=== PATIENT | female | born 1960 ===

== ENCOUNTER 2020-06-23 06:36 | Outpatient (CLI) | payer BC, OTHER ==
[2020-06-23 12:43] LABS: #Basophils 0.1 10x3/uL (0.0-0.2); #Eosinphils 0.1 10x3/uL (0.0-0.5); #Monocytes 0.6 10x3/uL (0.0-1.1); #Neutrophils 4.1 10x3/uL (1.5-8.4); %Basophils 1.1 % (0.0-2.0); %Eosinophils 1.9 % (0.0-6.0); %Lymphocytes 33.3 % (18.0-47.0); %Monocytes 8.2 % (0.0-10.0); %Neutrophils 55.4 % (40.0-75.0); Hemoglobin 14.5 g/dL (12.0-16.0); Mean Corpuscular HGB CONC 32.9 G/DL (32.0-36.0); Mean Corpuscular Hemoglobin 31.2 PG (27.0-33.0); Mean Corpuscular Volume 94.8 fl (80.0-100.0); Mean Platelet Volume 11.8 fl (7.4-10.4); Platelet Count 219 10x3/uL (130-400); RBC Distribution Width 12.5 % (11.5-14.5); Red Blood Cell (RBC) Count 4.65 10x6/uL (3.90-5.20); White Blood Cell (WBC) Count 7.5 10x3/uL (4.5-11.0)
[2020-06-23 13:12] LABS: Anion Gap 15 mmol/L (10-20); BUN (Urea Nitrogen) 25 mg/dL (9.8-20.1); Calc. Creatinine Clearance 0 mL/min (70-130); Calcium 9.3 mg/dL (7.8-10.44); Carbon Dioxide 25 mmol/L (22-29); Chloride 106 mmol/L (98-107); Estimated GFR-MDRD 63; Glucose 102 mg/dL (70-105); Potassium 4.3 mmol/L (3.5-5.1); Sodium 142 mmol/L (136-145)
[2020-06-24 15:02] LABS: SARS-CoV-2 MS2 Positive; SARS-CoV-2 N Gene Negative; SARS-CoV-2 S Gene Negative; SARS-CoV-2 by NAA Not Detected (NotDetected); SARS-CoV-2 orf1ab Negative
== END 2020-06-23 06:37 | disposition home or self-care (01) ==
LOC: LABBT 06:36
PROVIDERS: ATTEND Specialist
DX: Z01.812 Encounter for preprocedural laboratory examination (principal); Z20.828 Contact with and (suspected) exposure to other viral communicable diseases; K43.2 Incisional hernia without obstruction or gangrene
CPT/HCPCS: 80048; 85025; 87635; U0003

== ENCOUNTER 2020-06-28 05:53 | Day surgery (SDC) | payer BC ==
[2020-06-27 09:20] VITALS: BMI 35.9
[2020-06-28] MEDS ORDERED: Lidocaine 1% w/Epinephrine 1:100K 20 ML VIAL ONE (06:40)
[2020-06-28] MEDS ORDERED: Bupivacaine 0.25% HCL 30 ML VIAL ONE (06:40)
[2020-06-28] MEDS ORDERED: Fentanyl 100 MCG/2 ML VIAL ONE (06:43)
[2020-06-28] MEDS ORDERED: Ketorolac Tromethamine 30 MG/ML VIAL ONE (06:46)
[2020-06-28] MEDS ORDERED: Acetaminophen 500 MG TAB ONE (06:46)
[2020-06-28] MEDS ORDERED: Midazolam HCl 2 mg/2 ml Vial ONE (07:20)
--- NOTE | 2020-06-28 09:54 | RAD ---
CHEST 2 VIEWS: INDICATION: Preoperative evaluation. COMPARISON: None. FINDINGS: Lungs are clear. Heart size is normal. No pleural effusion or pneumothorax is evident. No acute os seous abnormality is evident. IMPRESSION: No acute cardiopulmonary abnormality. POS: BH
[2020-06-28] MEDS ORDERED: Lidocaine 1% PF 5 ML VIAL ONE (11:08)
[2020-06-28] MEDS ORDERED: PROPOFOL 200 MG/20 ML VIAL ONE (11:08)
[2020-06-28] MEDS ORDERED: Ondansetron PF 4 MG/2 ML Vial ONE (11:08)
[2020-06-28] MEDS ORDERED: Glycopyrrolate 0.2 MG/ML 5 ML SYRINGE ONE (11:08)
[2020-06-28] MEDS ORDERED: Dexamethasone 20 MG/5 ML VIAL ONE (11:08)
[2020-06-28] MEDS ORDERED: Rocuronium Bromide 10 MG/ML (10ML VIAL) ONE (11:08)
--- NOTE | 2020-06-29 14:11 | OP ---
DATE OF PROCEDURE: 06/28/2020 PREOPERATIVE DIAGNOSIS: Incisional abdominal hernia. POSTOPERATIVE DIAGNOSIS: Incisional abdominal hernia. PROCEDURE PERFORMED: Repair of incisional abdominal hernia with a 4.3 cm Ventralex mesh patch. ANESTHESIA: General with laryngeal mask airway. INDICATIONS: Patient is a 60-year-old white female. She has a history of laparoscopic bariatric surgery. She has developed an easily palpable midline hernia just cephalad to a laparoscopic port site. This is presumed to be the source of her hernia. She is taken to the operating room at this time for repair. DESCRIPTION OF OPERATION: Informed consent was obtained. Patient was taken to the operating room, where general anesthesia obtained with patient in supine position. Abdomen is prepped with ChloraPrep and draped in a sterile fashion. Ultrasound was utilized to samuel the area of the hernia defect on the fascia. This was clearly a midline hernia. Incision was created over the hernia over the marked hernia defect. Dissection was carried through skin and subcutaneous tissue down to the hernia which was easily visualized. It was carefully dissected circumferentially at its base. It was difficult dissecting within the wound because, although she has had bariatric surgery, she has had weight regain and has a very thick subcutaneous fat layer. The hernia contents could still not be reduced even after it was dissected. I thereafter excised the hernia sac and still attempted to reduce the contents which I could not. I excised the fatty tissue with electrocautery. I then dissected the defect on the anterior and posterior aspects. Preperitoneal dissection was carried out. A 4.3 Ventralex mesh patch was placed in the preperitoneal space and pulled snugly against the posterior aspect of the fascia. The mesh tails were secured to the fascia superiorly and inferiorly with 0 Prolene sutures. Two additional Prolene sutures were placed on the lateral aspects to incorporate bites of the anterior leaflet of the mesh. The wound was then closed in layers with 3-0 Vicryl to obliterate the space. Skin edges approximated with 4-0 Monocryl subcuticular suture and Dermabond placed externally. There were no complications. Patient tolerated the procedure well and was taken to recovery room in stable condition. Job ID: [id number]
--- NOTE | 2020-07-01 08:38 | EKG ---
Test Reason : PREOP Blood Pressure : / mmHG Vent. Rate : 064 BPM Atrial Rate : 064 BPM P-R Int : 134 ms QRS Dur : 078 ms QT Int : 438 ms P-R-T Axes : 060 017 -05 degrees QTc Int : 451 ms Normal sinus rhythm Normal ECG No previous ECGs available Confirmed by SHERON BOND MD ([id number]) on 07/01/2020 8:37:45 AM Referred By: JUAN ANTONIO Confirmed By:SHERON BOND MD
== END 2020-06-28 11:00 | disposition home or self-care (01) ==
LOC: SDC 05:53
PROVIDERS: ATTEND Specialist
PROC: 0WUF0JZ Supplement Abdominal Wall with Synthetic Substitute, Open Approach (ICD-10-PCS; principal; 2020-06-28)
DX: K43.0 Incisional hernia with obstruction, without gangrene (principal); I10 Essential (primary) hypertension; E11.9 Type 2 diabetes mellitus without complications; Z79.899 Other long term (current) drug therapy; Z98.84 Bariatric surgery status
CPT/HCPCS: 71046; 93005; 93010; J0690; J1100; J1885; J2250; J2405; J2704; J3010; S0020